=== PATIENT | female | born 1950 | race Caucasian/White ===

== ENCOUNTER 2018-11-27 15:29 | Emergency (ER) | payer OTHER ==
[~2018-11-27] VITALS: Ht 160 cm; Wt 45.4 kg
[2018-11-27 15:44] VITALS: Ht 160 cm; Wt 45.4 kg
--- NOTE | 2018-11-27 19:05 | ERD ---
ER Documentation Chief Complaint Chief Complaint LOW HEMOGLOBIN 7.6 HPI The patient is a 68-year-old female, presenting to the ER because she has been coughing for the last 2 weeks, went to the clinic 3 days ago and was told to go to the ER today because of low hemoglobin of 7.6. She denies fever, chills, neck pain, chest pain, dyspnea, abdominal pain, vomiting, dysuria, diarrhea. She does not smoke nor drink, denies any recent traveling Past medical history: Anemia Past surgical history: None ROS All systems reviewed and are negative except as per history of present illness. Medications Home Meds Active Scripts Albuterol Sulfate* (Proair HFA*) 8.5 Gm Hfa.aer.ad, 2 PUFF INH Q4, #1 INHALER Prov:SORAIDA GAO MD 11/27/18 Benzonatate* (Benzonatate*) 200 Mg Capsule, 200 MG PO TID PRN for COUGH, #15 CAP Prov:SORAIDA GAO MD 11/27/18 Azithromycin* (Zithromax*) 250 Mg Tablet, 250 MG PO .ZPACK DIRECTED, #6 TAB TAKE 500 MG (2 TABS) THE FIRST DAY THEN 250 MG (1 TAB) DAYS 2-5 Prov:SORAIDA GAO MD 11/27/18 Physical Exam Vitals Vital Signs Date Temp Pulse Resp B/P (MAP) Pulse Ox O2 O2 Flow FiO2 Time Delivery Rate 11/27/18 98.8 78 22 114/78 97 Room Air 20:45 (90) 11/27/18 77 18 97 21 20:23 11/27/18 98.8 60 18 158/75 98 Room Air 19:09 (102) 11/27/18 98.8 84 18 113/70 96 15:44 (84) Physical Exam Const: No acute distress. Head: Atraumatic. Eyes: Normal Conjunctiva. ENT: Normal External Ears, Nose and Mouth. Neck: Full range of motion. No meningismus. Resp: Mild bilateral expiratory wheezes. Cardio: Regular rate and rhythm. Abd: Soft, non distended, normal bowel sounds, non tender. Skin: No petechiae or rashes. Back: No midline or flank tenderness. Ext: No cyanosis, or edema. Neur: Awake and alert. No focal deficit Psych: Normal Mood and Affect. Result Diagram: 11/27/18 1900 11/27/18 1900 Results 24 hrs Laboratory Tests Test 11/27/18 19:00 White Blood Count 8.9 10^3/ul Red Blood Count 4.40 10^6/ul Hemoglobin 7.7 g/dl Hematocrit 27.8 % Mean Corpuscular Volume 63.2 fl Mean Corpuscular Hemoglobin 17.5 pg Mean Corpuscular Hemoglobin Concent 27.7 g/dl Red Cell Distribution Width 24.5 % Platelet Count 568 10^3/UL Mean Platelet Volume 10.2 fl Immature Granulocytes % 0.900 % Neutrophils % 65.4 % Lymphocytes % 23.6 % Monocytes % 6.9 % Eosinophils % 2.6 % Basophils % 0.6 % Nucleated Red Blood Cells % 0.4 /100WBC Immature Granulocytes # 0.080 10^3/ul Neutrophils # 5.9 10^3/ul Lymphocytes # 2.1 10^3/ul Monocytes # 0.6 10^3/ul Eosinophils # 0.2 10^3/ul Basophils # 0.1 10^3/ul Nucleated Red Blood Cells # 0.0 10^3/ul Prothrombin Time 12.4 Sec Prothrombin Time Ratio 1.0 INR International Normalized Ratio 0.91 Activated Partial Thromboplast Time 33.7 Sec Sodium Level 139 mmol/L Potassium Level 4.7 mmol/L Chloride Level 105 mmol/L Carbon Dioxide Level 27 mmol/L Anion Gap 7 Blood Urea Nitrogen 21 mg/dl Creatinine 0.79 mg/dl Est Glomerular Filtrat Rate mL/min > 60 mL/min Glucose Level 135 mg/dl Calcium Level 9.3 mg/dl Current Medications Medications Dose Sig/Alen Start Time Status Last (Trade) Ordered Route PRN Stop Time Admin Dose Reason Admin Ipratropium 0.5 mg ONCE STAT 11/27/18 DC 11/27/18 Alexis NEB 19:12 11/27/18 20:22 (Atrovent 19:16 0.02% (Neb)) 1.25 mg ONCE STAT 11/27/18 DC 11/27/18 Levalbuterol INH 19:12 11/27/18 20:22 (Xopenex 19:16 Neb) Procedures/MDM [place] [id number] Radiology Main Line: [phone] DIAGNOSTIC IMAGING REPORT Patient: JAMAAL MUNIZ : 1950 Age: 68 Sex: F MR #: [id number] DOS: 11/27/181911 Ordering MD: SORAIDA GAO MD Location: E/R Room/Bed: PROCEDURE: XR Chest. CLINICAL INDICATION: Dyspnea. TECHNIQUE: Single frontal chest x-ray. COMPARISON: None. FINDINGS: The lungs are remarkable for mild patchy atelectasis in the medial right lung base. No focal opacification is seen. The cardiomediastinal silhouette is unremarkable. The osseous structures are unremarkable. IMPRESSION: 1. Mild right medial basilar atelectasis. 2. Otherwise, unremarkable chest x-ray. RPTAT: PP .Lalo Ryan MD, MD Date Time Electronically viewed and signed by .Lalo Ryan MD, on 11/27/2018 20:11 .B/ CC: SORAIDA GAO MD [phone] MEDICAL MAKING DECISION: The patient is a 78-year-old female, presenting with acute bronchitis, concerning for acute lower respiratory infection, anemia, is above outpatient follow-up The differential diagnoses considered include but are not limited to pneumonia, influenza, reactive airway disease, CHF, gastrointestinal bleeding Departure Diagnosis: Primary Impression: Bronchitis Additional Impression: Anemia Condition: Good Comments He was discharged with albuterol Josy BALDWIN Z-Pak I discussed the findings with the patient. I advised the patient to follow-up with the primary physician in about 2-3 days for re-eval and further workup of her anemia, sooner if needed and return if any concern. Disclaimer: Inadvertent spelling and grammatical errors are likely due to EHR/dictation software use and do not reflect on the overall quality of patient care. Also, please note that the electronic time recorded on this note does not necessarily reflect the actual time of the patient encounter. SORAIDA GAO MD Nov 27, 2018 19:05
[2018-11-27] MEDS ORDERED: IPRATROPIUM (NEB) 0.5 MG/2.5 ML AMP NEB STA (19:12)
[2018-11-27] MEDS ORDERED: LEVALBUTEROL (NEB) 1.25 MG/0.5 ML AMP INH STA (19:12)
[2018-11-27] MEDS ORDERED: BENZ200C68 PO (20:20)
[2018-11-27] MEDS ORDERED: AZIT250T PO (20:20)
[2018-11-27] MEDS ORDERED: ALBU8.5H8 INH (20:21)
[2018-11-27 20:45] VITALS: BP 114/78; PULSE 78; RESP 22
== END 2018-11-27 20:47 | disposition home or self-care (01) ==
LOC: E/R 15:29
DX: J40 Bronchitis, not specified as acute or chronic (principal); R42 Dizziness and giddiness
CPT/HCPCS: 36415; 71045; 80048; 85025; 85610; 85730; 86850; 86900; 86901; 93005; 94664; Z7502; Z7610